=== PATIENT | female | born 1980 | race Caucasian/White ===

== ENCOUNTER 2017-08-26 14:50 | Emergency (ER) | payer OTHER ==
[2017-08-26] MEDS ORDERED: BACTRIM DS TABLET PO STA (15:46)
[2017-08-26] MEDS ORDERED: ZOFRAN ODT 4 MG PO ONE (15:47)
--- NOTE | 2017-08-26 15:47 | ERPHSYRPT ---
- History of Present Illness Time Seen by Provider: 08/26/17 15:35 Source: patient Exam Limitations: clinical condition Patient Subjective Stated Complaint: PT REPORTS BEING BITTEN IN THE MIDDLE OF HER BACK 2 DAYS AGO-STATES IT IS WORSENING-DENIES DRAINAGE-DENIES FEVER Triage Nursing Assessment: PT PINK WARM ET DRY-SWELLING BLISTERING ET NO DRAINAGE NOTED AT THSI TIME-PT MOVING UPPER EXTREMITIES WITH NO DIFFICULTIES Physician History: PATIENT BITTEN OVER MID BACK BY INSECT 2 DAYS AGO, HAS PERSISTENT RASH, ITCHING INITALLY. DENIES PAIN OR FEVER. Timing/Duration: day(s) Quality: itchy Severity: moderate Location: other (BACK) Possible Causes: insect bite Modifying Factors: Improves With: other (PAIN) Allergies/Adverse Reactions: latex Allergy (Intermediate, Verified 08/26/17 15:16) Swelling penicillin G Allergy (Intermediate, Verified 08/26/17 15:16) Swelling Home Medications: Paroxetine HCl [Paxil] 20 mg PO DAILY 08/26/17 [History] Hx Tetanus, Diphtheria Vaccination/Date Given: No Hx Influenza Vaccination/Date Given: No Hx Pneumococcal Vaccination/Date Given: No Immunizations Up to Date: Yes - Review of Systems Skin: Rash Neurological: No Symptoms - Past Medical History Pertinent Past Medical History: Yes Psycho-Social History: Depression - Past Surgical History Past Surgical History: No - Social History Smoking Status: Current every day smoker How long have you smoked: YRS Exposure to second hand smoke: No Drug Use: none Patient Lives Alone: No - Nursing Vital Signs Nursing Vital Signs: Initial Vital Signs Temperature 98.9 F 08/26/17 15:15 Pulse Rate 95 H 08/26/17 15:15 Respiratory Rate 20 08/26/17 15:15 Blood Pressure 133/83 08/26/17 15:15 O2 Sat by Pulse Oximetry 96 08/26/17 15:15 Pain Scale Pain Intensity 7 - Physical Exam General Appearance: no apparent distress Skin Exam: rash, other (THERE IS SLIGHT MULTIPLE 1-2MM BULLAE FORMATION WITH SURROUNDING ERYTHRMA OVER MID THORACIC SPINE T6 TO T8) SpO2 Interpretation: normal SpO2: 96 Oxygen Delivery: Room Air Ordered Tests: Medication Summary Discontinued Medications Generic Name Dose Route Start Last Admin Trade Name Freq PRN Reason Stop Dose Admin Ondansetron HCl 4 mg 08/26/17 15:47 08/26/17 15:52 Zofran Odt 4 Mg PO 08/26/17 15:48 4 mg STAT ONE Administration Ondansetron HCl Confirm 08/26/17 15:50 Zofran Odt 4 Mg Administered 08/26/17 15:51 Dose 4 mg .ROUTE .STK-MED ONE Trimethoprim/Sulfamethoxazole 1 tab 08/26/17 15:46 08/26/17 15:52 Bactrim Ds Tablet PO 08/26/17 15:47 1 tab STAT STA Administration Trimethoprim/Sulfamethoxazole Confirm 08/26/17 15:51 Bactrim Ds Tablet Administered 08/26/17 15:52 Dose 1 tab PO .STK-MED ONE - Progress Progress Note: 08/26/17 16:34 ADMINISTERED ZOFRAN 4MG, BACTRIM DS ORALLY Counseled pt/family regarding: diagnosis, need for follow-up - Departure Time of Disposition: 16:35 Departure Disposition: Home Clinical Impression: LOCAL REACTION TO INSECT BITE Condition: Stable Critical Care Time: No Additional Instructions: TAKE OVER THE COUNTER BENADRYL 50 MG EVERY 4 HOURS NEEDED FOR ITCHING. ANTIBIOTIC BACTRIM DS TWICE DAILY FOR 10 DAYS. TYLENOL OR MOTRIN NEEDED FOR PAIN OR FEVER. ZOFRAN 4MG EVERY 4 HOURS FOR NAUSEA. CONSULT YOUR PRIMARY CARE PHYSICIAN FOR EVALUATION IN 1 WEEK. Prescriptions: Ondansetron [Zofran Odt] 4 mg PO Q4-6HPRN PRN #6 tab.rapdis PRN Reason: Nausea Smz/Tmp Ds Tablet [Bactrim Ds Tablet] 1 udtab PO BID #20 tablet
[2017-08-26] MEDS ORDERED: ZOFRAN ODT 4 MG ONE (15:50)
[2017-08-26] MEDS ORDERED: BACTRIM DS TABLET PO ONE (15:51)
[2017-08-26 16:52] VITALS: BP 115/64; PULSE 92; O2SAT 97
== END 2017-08-26 16:52 | disposition home or self-care (01) ==
LOC: ED 14:50
DX: S20.469A Insect bite (nonvenomous) of unspecified back wall of thorax, initial encounter (principal); R21 Rash and other nonspecific skin eruption
CPT/HCPCS: 99283; 99284; Q0162; A9270-GY